=== PATIENT | female | born 1965 | race Caucasian/White ===

== ENCOUNTER 2018-04-26 08:24 | Day surgery (SDC) | payer OTHER ==
[~2018-04-26] VITALS: Ht 162.6 cm; Wt 86.2 kg
[2018-04-26] MEDS ORDERED: SIMETHICONE 40 MG/0.6 ML ML ONE (08:48)
[2018-04-26] MEDS: MEPERIDINE HCL/PF 100 MG/ML AMP ONE ×2 (10:24→10:32)
[2018-04-26] MEDS: MIDAZOLAM HCL 5 MG/5 ML VIAL ONE ×3 (10:24→10:28)
[2018-04-26 13:54] VITALS: BP_SYST 125
== END 2018-04-26 11:30 | disposition home or self-care (01) ==
LOC: SDS 08:24
PROVIDERS: ATTEND Colon & Rectal Surgery
DX: Z12.11 Encounter for screening for malignant neoplasm of colon (principal); D12.8 Benign neoplasm of rectum; F32.9 Major depressive disorder, single episode, unspecified; E78.5 Hyperlipidemia, unspecified; Z90.49 Acquired absence of other specified parts of digestive tract; Z98.890 Other specified postprocedural states; F17.200 Nicotine dependence, unspecified, uncomplicated; Z68.32 Body mass index [BMI] 32.0-32.9, adult
CPT/HCPCS: 45380; 88305; J2175; J2250